=== PATIENT | female | born 1985 | race Caucasian/White ===

== ENCOUNTER 2020-02-29 21:17 | Inpatient (IN) | payer MEDICAID, SELFPAY ==
[2020-02-29] VITALS (28 sets, daily range): BP systolic 0–150; BP diastolic 0–77; PULSE 62–94; RESP 16–17; TEMP 36.8; O2SAT 98–100; BMI 48.4
[2020-02-29] MEDS: ampicillin 2,000 MG in sodium chloride 0.9% (plus) 50 ML 100 MG IV (21:57)
[2020-02-29 22:09] LABS: Basophils # 0.1 10^3/uL (0.0-0.1); Basophils % 0.6 %; Eosinophils # 0.5 10^3/uL (0.0-0.8); Eosinophils % 2.5 %; Hematocrit 37.7 % (37.0-47.0); Hemoglobin 12.7 g/dL (11.5-15.3); Lymphocytes # 2.4 10^3/uL (0.8-4.8); Lymphocytes % 12.9 %; Mean Corpuscular HGB Conc 33.7 g/dL (30.0-36.0); Mean Corpuscular Hemoglobin 30.5 pg (28.0-34.0); Mean Corpuscular Volume 90.6 fL (81-99); Mean Platelet Volume 13.1 fL (7.4-10.4); Monocytes # 1.3 10^3/uL (0.2-0.9); Monocytes % 6.9 %; Neutrophils # 13.83 10^3/uL (1.8-7.7); Neutrophils % 76.2 %; Nucleated Red Blood Cells % 0 %; Platelet Count 157 10^3/cmm (130-400); Red Blood Count 4.16 10^6/uL (4.1-5.3); Red Cell Distribution Width 13.1 % (12.1-15.1); White Blood Count 18.2 10^3/uL (4.0-10.0)
[2020-02-29] MEDS: lactated ringers 1,000 ML 999 ML IV (22:30)
[2020-02-29 22:40] LABS: Slide Review Slide Review Perform
--- NOTE | 2020-02-29 23:17 | ANES.PREANE2 ---
Pre-Anesthetic Assessment Pre-Anesthetic Assessment: Height/Weight: Height 1.68 m Weight 136.078 kg Temp Pulse Resp BP 98.3 F 62 17 0/0 02/29/20 21:46 02/29/20 22:44 02/29/20 21:46 02/29/20 23:13 Preop Diagnosis: labor Proposed Procedure: epidural Was Beta Bright taken within 24 hours: N/A Last Intake: 17:00 Social: Social History: No alcohol and No tobacco Exam: Pre-Anes Outpt Exam: alert, oriented x 3, clear to auscultation bilaterally and regular rate & rhythm Airway: Submandibular: WNL Cervical ROM: WNL MP: 1 Dentition: Full Pulmonary: Pulmonary: None reported CV/HEM: CV/HEM: None reported : : None reported Hepatic: Hepatic: None reported GI: GI: GERD (controlled) Metabolic: Metabolic: Morbid obesity Musc/skel: Musc/skel: None reported Neuropsych: Neuropsych: None reported Anesthetic Plan: ASA status: 2 Anesthesia: Regional (specify below) (epidural) Risk of > 500 ml blood loss (7ml/kg in children): No Meds/Allergies Current Medications: Current Medications Generic Name Dose Route Start Last Admin Trade Name Freq PRN Reason Stop Dose Admin Lactated Ringer's 1,000 mls @ 999 m ls/hr 02/29/20 22:36 02/29/20 22:30 Lactated Ringers IV 02/29/20 23:36 999 mls/hr .Q1H1M ONE Administration PFSH Anesthesia Female Reproductive History: : 4 Data Anesthesia CBC & Chem 7: 02/29/20 21:25 Other Labs: Laboratory Results - last 48 hr 02/29/20 21:25 WBC 18.2 H RBC 4.16 Hgb 12.7 Hct 37.7 MCV 90.6 MCH 30.5 MCHC 33.7 RDW 13.1 Plt Count 157 MPV 13.1 H Neut % (Auto) 76.2 Lymph % (Auto) 12.9 [place] % (Auto) 6.9 Eos % (Auto) 2.5 Baso % (Auto) 0.6 Neut # (Auto) 13.83 H Lymph # (Auto) 2.4 [place] # (Auto) 1.3 H Eos # (Auto) 0.5 Baso # (Auto) 0.1 Nucleated RBC % (auto) 0 Nucleated RBCs # 0.0 Cardiac Studies: No Data to Display
[2020-02-29] MEDS: ondansetron 2 mg/ML SDV 2 mL 4 MG IVP (23:25)
[2020-03-01] VITALS (52 sets, daily range): BP systolic 0–136; BP diastolic 0–79; PULSE 59–125; RESP 15–18; TEMP 36.6–37; O2SAT 97–100
--- NOTE | 2020-03-01 00:05 | ANES.PROC ---
Anesthesia Procedures Procedure/Date: 03/01/20 Epidural: Time Out Performed: Yes Consents Signed: Procedure Consent Consent: requested by attending/covering physician, from patient, risks and benefits reviewed and patient agrees to proceed Lumbar Level: L3-L4 Epidural position: sitting Epidural procedure: sterile prep of area (betadine), 1% lidocaine to numb the area (3ml), 18 g needle, neg for paresthesia, test dose given, 1.5% xylocaine 1:200k epi (5ml), 0.2% Ropivacaine bolus ml (5ml), placed PCEA, no systemic response, sterile dressing applied, L.U.D. no apparent complications and 0.2% Ropiavacaine @ mls/hr (13ml/hr)
[2020-03-01] MEDS: ampicillin 1,000 MG in sodium chloride 0.9% (plus) 50 ML 100 MG IV (02:12)
[2020-03-01] MEDS: oxytocin 30 UNIT/500 ML BAG 600 UNIT IV (02:30)
--- NOTE | 2020-03-01 03:08 | PM.DELIVERY ---
Delivery Note: Date of delivery: March 01, 2020 Pre-Delivery Course: The patient arrived to the hospital in active labor. GBS status was unknown as result GBS protocol was initiated. An epidural was placed. She progressed to complete without difficulty. Delivery: DELIVERY: The patient progressed to complete without difficulty. She delivered a female with a weight of 7 pounds 0 ounces with Apgars of 8, 9. The baby was delivered from the VIRI position. The baby's mouth and nose were suctioned at the site of the perineum. The baby was then completely delivered and placed on the mother's abdomen. The cord was then clamped and cut. There was no nuchal cord. There was no meconium. The placenta and 3 vessel cord were delivered intact shortly thereafter. The perineum and vaginal vault were carefully examined. A posterior midline first-degree tear was noted. It was repaired with 3-0 Vicryl in the usual fashion.. Both the mother and the baby were in stable condition. Blood loss was 100 mL Post-Delivery Status: Good A&P Assessment and plan (1) 38 weeks gestation of : Status: Acute (2) Spontaneous vaginal delivery: Status: Acute Coding Level of Care Code Acute Law Firm Consultant for Chg Fwd Diagnoses 38 weeks gestation of Z3A.38 Spontaneous vaginal delivery O80
[2020-03-01] MEDS: benzocaine-menthol 78 gm Canister 1 SPRAY TOPICAL (04:57)
[2020-03-01] MEDS: lanolin oint 7 gm 1 APPLIC TOPICAL (04:58)
[2020-03-01] MEDS: prenatal vitamin Capsule 1 CAP PO (08:59)
[2020-03-01] MEDS: docusate sodium 100 mg Capsule PO ×2 (08:59→18:13)
--- NOTE | 2020-03-01 11:15 | ANE.PACU2 ---
Inpatient post-anesthesia follow up: Airway intact: Yes Vital signs: Temperature 97.8 F Pulse Rate 76 Respiratory Rate 16 Blood Pressure 90/60 Pulse Oximetry 99 Oxygen Delivery Me thod Room Air Oxygen Flow Rate Fraction of Inspir ed Oxygen Hydration adequate: Yes Nausea and vomiting: No Pain level: 3 Mental status: Baseline Additional Comments: no numbness or weakness in legs, no signs of infection at epidural site, no headaches
[2020-03-01 15:42] LABS: Hematocrit 34.2 % (37.0-47.0); Hemoglobin 11.2 g/dL (11.5-15.3); Mean Corpuscular HGB Conc 32.7 g/dL (30.0-36.0); Mean Corpuscular Hemoglobin 30.2 pg (28.0-34.0); Mean Corpuscular Volume 92.2 fL (81-99); Mean Platelet Volume 12.6 fL (7.4-10.4); Platelet Count 136 10^3/cmm (130-400); Red Blood Count 3.71 10^6/uL (4.1-5.3); Red Cell Distribution Width 13.2 % (12.1-15.1); White Blood Count 18.7 10^3/uL (4.0-10.0)
[2020-03-02 04:00] VITALS: BP 105/66; PULSE 68; RESP 14; TEMP 36.8; O2SAT 97
--- NOTE | 2020-03-02 07:44 | PM.OBGYDC ---
Discharge Providers [facility] Date of Admission: 02/29/20 21:17 Date of Discharge: 03/02/20 Attending Provider at Admission: Андрей Greenberg MD Attending Provider at Discharge: Андрей Greenberg MD Primary Care Provider: Javi Unger MD Diagnoses at Discharge Discharge Diagnosis (1) 38 weeks gestation of : Status: Acute (2) Spontaneous vaginal delivery: Status: Acute Reason for Visit Reason for Visit: ob triage Hospital Course Hospital Course: The patient presented to the hospital in active labor. She progressed to complete and had an unremarkable vaginal delivery. Please see delivery note for details. Her course was also unremarkable. Her bleeding was well controlled. Her pain was well controlled. She breast-fed well. Information Peripartum Data: Delivery Method: Vaginal Physical Exam Narrative: EXAM NARRATIVE: The patient is alert. She appears comfortable. Her heart has a regular rate and rhythm with no murmurs appreciated. Lungs are clear to auscultation bilaterally. Her fundus is firm and below the umbilicus. Urinary Catheter Management^: Millard: Cath Placed During This Visit: yes, but has since been removed by the nurse Reason for Continuing Indwelling Catheter: Decision to DC Catheter Urinary Catheter Date of Insertion: 03/01/20 Urinary Catheter Time of Insertion: 00:35 Date Urinary Catheter Removed: 03/01/20 Time Urinary Catheter Discontinued: 02:26 Discharge Data Data Completed and Pending: Labs from last 24 hours 03/01/20 15:30 WBC 18.7 H RBC 3.71 L Hgb 11.2 L Hct 34.2 L MCV 92.2 MCH 30.2 MCHC 32.7 RDW 13.2 Plt Count 136 MPV 12.6 H Vitals: Last Vital Signs Temp 98.3 F 03/02/20 04:00 Pulse 68 03/02/20 04:00 Resp 14 03/02/20 04:00 BP 105/66 03/02/20 04:00 Pulse Ox 97 03/02/20 04:00 Discharge Plan Discharge Patient Disposition: Home Condition: Stable Prescriptions: New ibuprofen 800 mg Tablet 800 mg PO TID Qty: 30 RF: 0 Continued 28-800 mg-mcg Tablet 1 tab PO DAILY RF: 0 Discontinued Nexium 1 tab PO DAILY RF: 0 Discharge Orders: Discharge Order (Routine); Ordered 03/02/20 Ordered By: Андрей Greenberg Referrals: Андрей Greenberg MD [Physician] - 6 Weeks Discharge Diet: Usual diet Discharge Activity: Limit activity as instructed Discharge Attestations [facility] Time Spent in Discharge Care*: less than 30 min Coding Level of Care Code Acute Health Science Writer for Chg Fwd Diagnoses 38 weeks gestation of Z3A.38 Spontaneous vaginal delivery O80
[2020-03-02] MEDS: prenatal vitamin Capsule 1 CAP PO (08:37)
[2020-03-02] MEDS: docusate sodium 100 mg Capsule PO (08:37)
[2020-03-02 09:28] VITALS: BP 101/68; PULSE 76; RESP 18; TEMP 37.2; O2SAT 97
== END 2020-03-02 10:00 | disposition home or self-care (01) | DRG 807 ==
LOC: OPOB 21:17 → OBGYN 21:17
PROVIDERS: Admitting Provider Family Medicine; PCP Internal Medicine; Visit Provider Family Medicine
DX: O70.0 First degree perineal laceration during delivery (principal); Z37.0 Single live birth; Z3A.38 38 weeks gestation of pregnancy
CPT/HCPCS: 12345; 36415; 51702; 59025; 59409; 85025; 85027; 96375; 99211; J0290; J2405; J2795